=== PATIENT | male | born 1975 | race Two or more races ===

== ENCOUNTER → 2020-08-27 | Outpatient (CLI) | payer OTHER | END | disposition home or self-care (01) | LOC: PPH VACUNA 10:00 | DX: Z23 Encounter for immunization (principal) ==

== ENCOUNTER 2021-06-05 07:00 | Outpatient (CLI) | payer OTHER | END 2021-06-05 07:20 | disposition home or self-care (01) | LOC: PPH VACUNA 07:00 | PROVIDERS: ATTEND Emergency Medicine Pediatric Emergency Medicine | DX: Z23 Encounter for immunization (principal) ==